=== PATIENT | female | born 1945 | race Caucasian/White ===

== ENCOUNTER 2016-10-13 11:14 | Outpatient (CLI) | payer MEDICARE ==
[2016-10-13 18:25] LABS: CHOL/HDL RATIO 3.7 (<4.4); CHOLESTEROL 202 mg/dL; GLUCOSE 92 mg/dL (70-100); HDL CHOLESTEROL 54 mg/dL; LDL/HDL RATIO 2.3 (<4.4); TRIGLYCERIDES 125 mg/dL; VLDL CHOLESTEROL 25 mg/dL
== END 2016-10-13 11:15 | disposition home or self-care (01) ==
LOC: LAB.F 11:14
PROVIDERS: ATTEND Internal Medicine
DX: Z00.00 Encounter for general adult medical examination without abnormal findings (principal); D48.5 Neoplasm of uncertain behavior of skin; M85.80 Other specified disorders of bone density and structure, unspecified site; Z12.11 Encounter for screening for malignant neoplasm of colon; E03.9 Hypothyroidism, unspecified; Z13.1 Encounter for screening for diabetes mellitus
CPT/HCPCS: 36415; 80061; 82947; 84443

== ENCOUNTER 2017-10-16 11:19 | Outpatient (CLI) | payer MEDICARE ==
[2017-10-16 18:29] LABS: CHOL/HDL RATIO 3.9 (<4.4); CHOLESTEROL 208 mg/dL; GLUCOSE,FASTING 96 mg/dL (70-100); HDL CHOLESTEROL 54 mg/dL; LDL CHOLESTEROL,CALCULATED 127 mg/dL; LDL/HDL RATIO 2.4 (<4.4); VLDL CHOLESTEROL 27 mg/dL
== END 2017-10-16 11:20 | disposition home or self-care (01) ==
LOC: LAB.F 11:19
PROVIDERS: ATTEND Internal Medicine
DX: E78.5 Hyperlipidemia, unspecified (principal); E03.9 Hypothyroidism, unspecified; Z13.1 Encounter for screening for diabetes mellitus
CPT/HCPCS: 36415; 80061; 82947; 83721; 84443

== ENCOUNTER 2018-09-05 11:02 | Outpatient (CLI) | payer MEDICARE ==
--- NOTE | 2018-09-05 13:06 | Mammography Report ---
Reason: SCREENING MAMMO Procedure Date: 09/05/2018 Accession Number: [id number] / [id number] Procedure: MGS - Screening Mammo Dig Bilat CPT Code: FULL RESULT: EXAM: Screening Mammo Dig Bilat DATE: 09/05/2018 11:33 AM CLINICAL HISTORY: Routine screening TECHNIQUE: (B) - Bilateral CC and MLO views were obtained. COMPARISON: 10/26/2015, 10/03/2013 and 07/31/2012 PARENCHYMAL PATTERN: (A) - The breasts demonstrate scattered fibroglandular densities bilaterally. FINDINGS: There are no suspicious masses, calcifications, or areas of distortion. IMPRESSION: Negative examination. BI-RADS category 1. RECOMMENDATION: (ANNUAL) - Recommend routine annual screening mammography. BI-RADS CATEGORY: (1) - Negative. STANDARD QUALIFYING STATEMENTS: 1. This examination was not reviewed with the aid of Computer-Aided Detection (CAD). 2. A negative or benign imaging report should not preclude biopsy if clinically suspicious findings are present. 3. Dense breasts may obscure an underlying neoplasm. 4. This examination was reviewed without the aid of 3D breast imaging (tomosynthesis).
== END 2018-09-05 11:03 | disposition home or self-care (01) ==
LOC: DI.S 11:02
DX: Z12.31 Encounter for screening mammogram for malignant neoplasm of breast (principal)
CPT/HCPCS: 77067

== ENCOUNTER 2018-10-18 11:52 | Outpatient (CLI) | payer MEDICARE ==
[2018-10-18 17:44] LABS: CHOL/HDL RATIO 3.4 (<4.4); CHOLESTEROL 185 mg/dL; GLUCOSE 95 mg/dL (70-100); HDL CHOLESTEROL 54 mg/dL; LDL CHOLESTEROL,CALCULATED 107 mg/dL; VLDL CHOLESTEROL 24 mg/dL
[2018-10-18 18:23] LABS: FREE T4 (FREE THYROXINE) 1.01 ng/dL (0.58-1.64)
== END 2018-10-18 11:53 | disposition home or self-care (01) ==
LOC: LAB.S 11:52
PROVIDERS: ATTEND Internal Medicine
DX: Z00.00 Encounter for general adult medical examination without abnormal findings (principal); J30.9 Allergic rhinitis, unspecified; E78.5 Hyperlipidemia, unspecified; D48.5 Neoplasm of uncertain behavior of skin; M85.80 Other specified disorders of bone density and structure, unspecified site; E03.9 Hypothyroidism, unspecified
CPT/HCPCS: 36415; 80061; 82947; 83721; 84439; 84443

== ENCOUNTER 2019-10-22 11:21 | Outpatient (CLI) | payer MEDICARE ==
[2019-10-23 12:49] LABS: HEPATITIS C ANTIBODY NON-REACTIVE (NON-REACTIVE)
== END 2019-10-22 11:22 | disposition home or self-care (01) ==
LOC: LAB.S 11:21
PROVIDERS: ATTEND Internal Medicine
DX: E03.9 Hypothyroidism, unspecified (principal); Z11.59 Encounter for screening for other viral diseases
CPT/HCPCS: 36415; 84443; 86803

== ENCOUNTER 2020-10-30 14:34 | Outpatient (CLI) | payer MEDICARE ==
[2020-10-30 20:31] LABS: THYROID STIMULATING HORMONE 1.96 uIU/mL (0.34-5.60)
== END 2020-10-30 14:35 | disposition home or self-care (01) ==
LOC: LAB.S 14:34
PROVIDERS: ATTEND Internal Medicine
DX: E03.9 Hypothyroidism, unspecified (principal)
CPT/HCPCS: 36415; 84443

== ENCOUNTER 2021-03-02 12:47 | Outpatient (CLI) | payer MEDICARE ==
--- NOTE | 2021-03-02 13:53 | DEXA Report ---
PROCEDURE: Dexa Spine and/or Hip INDICATIONS: NORMAL MENOPAUSE TECHNIQUE: Dual energy x-ray absorptiometry (DXA) was performed on a [email or web address] System. Regions measur ed are the AP Spine, femoral neck, and if needed forearm. COMPARISON: 10/26/2015 FINDINGS: Lumbar Spine: Bone Mineral Density 1.206 g/cm/cm,T score 0, normal bone density Left Hip: Bone Mineral Density 0.846 g/cm/cm,T score -1.3, osteopenia Left Femoral Neck: Bone Mineral Density 0.819 g/cm/cm, T score -1.6, osteopenia (T score greater or equal to -1.0: NORMAL) (T score from -1.1 to -2.4: OSTEOPENIA) (T score less than or equal to -2.5 to: OSTEOPOROSIS) Impression: OSTEOPENIA. Patient is at increased risk for fracture. Patients with diagnosis of osteoporosis or osteopenia should have regular bone mineral density assess ment. For those eligible for Medicare, routine testing is allowed once every 2 years. Testing frequ ency can be increased for patients who have rapidly progressing disease or for those who are receivin g medical therapy to restore bone mass. Reviewed by: Marco A Castillo MD on 03/02/2021 1:52 PM PST Approved by: Marco A Castillo MD on 03/02/2021 1:52 PM PST Station ID: [id number]
== END 2021-03-02 12:48 | disposition home or self-care (01) ==
LOC: DI 12:47
PROVIDERS: ATTEND Internal Medicine
DX: Z78.0 Asymptomatic menopausal state (principal); M85.89 Other specified disorders of bone density and structure, multiple sites

== ENCOUNTER → 2021-08-26 | Outpatient (CLI) | payer MEDICARE | END | disposition short-term general hospital (02) | LOC: EMS 15:14 | DX: R07.89 Other chest pain (principal); R68.84 Jaw pain; M25.512 Pain in left shoulder; M25.511 Pain in right shoulder; R42 Dizziness and giddiness; R61 Generalized hyperhidrosis | CPT/HCPCS: A0425; A0427 ==

== ENCOUNTER 2021-09-13 12:44 | Outpatient (CLI) | payer MEDICARE ==
[2021-09-13 15:21] LABS: CHOL/HDL RATIO 4.6 (<4.4); CHOLESTEROL 223 mg/dL; HDL CHOLESTEROL 49 mg/dL; LDL CHOLESTEROL,CALCULATED 145 mg/dL; TRIGLYCERIDES 147 mg/dL; VLDL CHOLESTEROL 29 mg/dL
[2021-09-13 15:34] LABS: THYROID STIMULATING HORMONE 0.59 uIU/mL (0.34-5.60)
[2021-09-13 18:45] LABS: ESTIMATED AVERAGE GLUCOSE 120 mg/dL (70-100); HEMOGLOBIN A1c% 5.8 % (4.27-6.07)
== END 2021-09-13 12:45 | disposition home or self-care (01) ==
LOC: LAB.S 12:44
PROVIDERS: ATTEND Internal Medicine
DX: E03.9 Hypothyroidism, unspecified (principal); Z13.1 Encounter for screening for diabetes mellitus; Z13.220 Encounter for screening for lipoid disorders
CPT/HCPCS: 36415; 80061; 83036; 83721; 84443

== ENCOUNTER 2022-11-01 13:53 | Outpatient (CLI) | payer MEDICARE ==
[2022-11-01 20:07] LABS: THYROID STIMULATING HORMONE 5.58 uIU/mL (0.34-5.60)
[2022-11-01 21:02] LABS: ESTIMATED AVERAGE GLUCOSE 120 mg/dL (70-100); HEMOGLOBIN A1c% 5.8 % (4.27-6.07)
== END 2022-11-01 13:54 | disposition home or self-care (01) ==
LOC: LAB.S 13:53
PROVIDERS: ATTEND Internal Medicine
DX: E03.9 Hypothyroidism, unspecified (principal); R73.03 Prediabetes
CPT/HCPCS: 36415; 83036; 84443

== ENCOUNTER 2022-12-06 14:11 | Outpatient (CLI) | payer MEDICARE ==
--- NOTE | 2022-12-07 13:23 | Mammography Report ---
BILATERAL DIGITAL SCREENING MAMMOGRAM 3D/2D: 12/06/2022 CLINICAL: Routine screening. Comparison is made to exams dated: 09/05/2018 mammogram, 10/26/2015 mammogram, 10/03/2013 mammogram, and 07/31/2012 mammogram - [facility]. Both breasts are almost entirely fatty (category a/<25% glandular tissue). No significant masses, calcifications, or other findings are seen in either breast. There has been no significant interval change. IMPRESSION: NEGATIVE There is no mammographic evidence of malignancy. A 1 year screening mammogram is recommended. Based on the Tyrer Cuzick model (a risk assessment model) the patients lifetime risk is 1.8% and her 10 year risk is 0.0%. According to the ACR, ACS, and NCCN guidelines, an annual breast MRI exam christie g with mammogram is recommended if the patients lifetime risk is 20% or greater. This exam was interpreted at Station ID: [id number]. NOTE: For mammograms, a report in lay terms will be sent to the patient. Approximately 15% of breast malignancies will not be visualized mammographically. In the management of a palpable breast mass, a negative mammogram must not discourage biopsy of a clinically suspicious lesion. Electronically Signed By: Jarad [email or web address]:12/06/2022 16:17:52 letter sent: No_Letter ACR BI-RADS Category 1: Negative 3341F PARENCHYMAL PATTERN: (F) - The breast(s) demonstrate(s) diffuse fatty replacement. BI-RADS CATEGORY: (1) - 1 Mammogram [id number] 1 year screening LATERALITY: (B)
== END 2022-12-06 14:12 | disposition home or self-care (01) ==
LOC: DI.S 14:11
PROVIDERS: ATTEND Psychiatry & Neurology Psychiatry
DX: Z12.31 Encounter for screening mammogram for malignant neoplasm of breast (principal)

== ENCOUNTER 2023-10-28 13:04 | Outpatient (CLI) | payer MEDICARE ==
[2023-10-28 13:46] LABS: THYROID STIMULATING HORMONE 6.98 uIU/mL (0.34-5.60)
== END 2023-10-28 13:05 | disposition home or self-care (01) ==
LOC: LAB 13:04
PROVIDERS: ATTEND Internal Medicine
DX: E03.9 Hypothyroidism, unspecified (principal)
CPT/HCPCS: 36415; 84439; 84443